=== PATIENT | female | born 1995 ===

== ENCOUNTER 2016-05-21 22:48 | Emergency (ER) | payer SELFPAY ==
--- NOTE | 2016-05-21 23:02 | QN ---
Documentation Comment Patient was seen and it upon arrival as the patient arrived by ambulance. Her chief complaint is abdominal pain. She will be sent to triage for vital signs will be seen by another provider. I was told by the paramedics that when she went to triage the family decided to elope as she was not going to be in a bed immediately. Medical screening exam was initiated but workup was unable to be completed as the patient eloped. DEBBIE ARREOLA MD May 21, 2016 23:02
== END 2016-05-21 23:55 | disposition left against medical advice (07) ==
LOC: E/R 22:48
DX: Z53.21 Procedure and treatment not carried out due to patient leaving prior to being seen by health care provider (principal)